=== PATIENT | female | born 1995 | race Caucasian/White ===

== ENCOUNTER 2016-10-01 15:52 | Emergency (ER) | payer MEDICAID ==
--- NOTE | 2016-10-01 16:33 | ER Document Report ---
ED Medical Screen (RME) - General Stated Complaint: BLEEDING/CRAMPING Notes: 21 yo female c/o bleeding and cramping x 2 days. pt has nexplanon in left arm. no urinary symptoms. GiP1. LMP 2013 TRAVEL OUTSIDE OF THE [place] IN LAST 30 DAYS: No - Related Data Allergies/Adverse Reactions: No Known Allergies Allergy (Verified 06/18/13 17:49) Past Medical History GI Medical History: Reports: Hx Gastroesophageal Reflux Disease Psychiatric Medical History: Reports: Hx Depression Past Surgical History: Reports: Hx Adenoidectomy, Hx Cardiac Surgery - PDA repaired 1994, Hx Oral Surgery - wisdom teeth, Hx Tonsillectomy - Immunizations Immunizations up to date: Yes Hx Diphtheria, Pertussis, Tetanus Vaccination: Yes - 07/2013 Physical Exam - Vital signs Vitals: Temp Pulse Resp BP Pulse Ox 98.0 F 120 H 18 137/69 H 99 10/01/16 16:06 10/01/16 16:06 10/01/16 16:06 10/01/16 16:06 10/01/16 16:06 Course - Vital Signs Vital signs: Temp Pulse Resp BP Pulse Ox 98.0 F 120 H 18 137/69 H 99 10/01/16 16:06 10/01/16 16:06 10/01/16 16:06 10/01/16 16:06 10/01/16 16:06
[2016-10-01 17:05] LABS: ABSOLUTE BASOPHILS # (AUTO) 0.1 10^3/uL (0.0-0.2); ABSOLUTE EOSINOPHILS # (AUTO) 0.2 10^3/uL (0.0-0.6); ABSOLUTE MONOCYTES (AUTO) 0.6 10^3/uL (0.1-1.4); ABSOLUTE NEUT (AUTO) 6.3 10^3/uL (1.7-8.2); BASOPHILS % (AUTO) 0.6 % (0-2); EOSINOPHILS % (AUTO) 2.1 % (0-6); HEMATOCRIT 39.8 % (36.0-47.0); HEMOGLOBIN 13.7 g/dL (12.0-15.5); HGB HCT DIFFERENCE 1.3; LYMPHOCYTES % (AUTO) 21.9 % (13-45); MEAN CORPUSCULAR HEMOGLOBIN 28.2 pg (27.0-33.4); MEAN CORPUSCULAR HGB CONC 34.3 g/dL (32.0-36.0); MEAN CORPUSCULAR VOLUME 82 fl (80-97); MONOCYTES % (AUTO) 6.7 % (3-13); RED BLOOD COUNT 4.84 10^6/uL (3.72-5.28); RED CELL DISTRIBUTION WIDTH 14.4 % (11.5-14.0); SEGMENTED NEUTROPHILS % (AUTO) 68.7 % (42-78); WHITE BLOOD COUNT 9.1 10^3/uL (4.0-10.5)
--- NOTE | 2016-10-01 18:06 | ER Document Report ---
ED GI/ - General Chief Complaint: Vaginal Bleeding Stated Complaint: BLEEDING/CRAMPING Mode of Arrival: Ambulatory Information source: Patient TRAVEL OUTSIDE OF THE [place] IN LAST 30 DAYS: No - HPI Patient complains to provider of: Pelvic pain, Vaginal bleeding Onset: Other - 2 DAYS Timing/Duration: Waxing and waning Quality of pain: Cramping Severity at maximum: Moderate Severity in ED: Moderate Context: Other - HAS CONTRACEPTIVE IMPLANT L. ARM. denies: Bad food, Lifting, Out of the country travel, , Recent trauma Location: Pelvis Vaginal bleeding (Compared to normal period): Heavier. denies: Passing clots, Passing tissue Menstrual period history: Abnormal - NONE SINCE CONTRACEPTIVE IMPLANT2014 Sexual history: Active - MONOGAMOUS Associated symptoms: None. denies: Chills, Fever, Nausea, Vomiting Exacerbated by: Denies Relieved by: Denies Similar symptoms previously: No Recently seen / treated by doctor: No - Related Data Allergies/Adverse Reactions: No Known Allergies Allergy (Verified 10/01/16 16:31) Past Medical History - General Information source: Patient - Social History Smoking Status: Never Smoker Cigarette use (# per day): No Chew tobacco use (# tins/day): No Frequency of alcohol use: None Drug Abuse: None Lives with: Spouse/Significant other Family History: Reviewed & Not Pertinent Patient has suicidal ideation: No Patient has homicidal ideation: No - Past Medical History Cardiac Medical History: Reports: None Pulmonary Medical History: Reports: None EENT Medical History: Reports: None Neurological Medical History: Reports: None Endocrine Medical History: Reports: None Renal/ Medical History: Reports: None. Denies: Hx Peritoneal Dialysis Malignancy Medical History: Reports: None GI Medical History: Reports: Hx Gastroesophageal Reflux Disease Musculoskeltal Medical History: Reports None Psychiatric Medical History: Reports: Hx Depression Past Surgical History: Reports: Hx Adenoidectomy, Hx Cardiac Surgery - PDA repaired 1994, Hx Oral Surgery - wisdom teeth, Hx Tonsillectomy - Immunizations Immunizations up to date: Yes Hx Diphtheria, Pertussis, Tetanus Vaccination: Yes - 07/2013 Review of Systems - Review of Systems Constitutional: No symptoms reported EENT: No symptoms reported Cardiovascular: No symptoms reported Respiratory: No symptoms reported Gastrointestinal: No symptoms reported Genitourinary: No symptoms reported Female Genitourinary: See HPI Musculoskeletal: No symptoms reported Skin: No symptoms reported Neurological/Psychological: No symptoms reported Physical Exam - Vital signs Vitals: Temp Pulse Resp BP Pulse Ox 98.0 F 120 H 18 137/69 H 99 10/01/16 16:06 10/01/16 16:06 10/01/16 16:06 10/01/16 16:06 10/01/16 16:06 Interpretation: Tachycardic - RESOLVED @ TIME OF M.D. EXAM. No: Hypotensive, Tachypneic, Febrile - General General appearance: Appears well, Alert In distress: None - HEENT Head: Normocephalic Eyes: Normal. No: Pale conjunctiva Conjunctiva: Normal Ears: Normal Nasal: Normal Mouth/Lips: Normal Mucous membranes: Normal - Respiratory Respiratory status: No respiratory distress - Cardiovascular Rhythm: Regular - Abdominal Inspection: Normal Distension: No distension Bowel sounds: Hypoactive Tenderness: Tender - LOW ABD, R=L - Back Back: Normal - Extremities General upper extremity: Normal inspection General lower extremity: Normal inspection - Neurological Neuro grossly intact: Yes Cognition: Normal Orientation: AAOx4 - Psychological Associated symptoms: Normal affect, Normal mood - Skin Skin Temperature: Warm Skin Moisture: Dry Skin Color: Normal Skin Turgor: Elastic Course - Vital Signs Vital signs: Temp Pulse Resp BP Pulse Ox 98.0 F 120 H 18 137/69 H 99 10/01/16 16:06 10/01/16 16:06 10/01/16 16:06 10/01/16 16:06 10/01/16 16:06 - Laboratory Result Diagrams: 10/01/16 16:51 Laboratory results interpreted by me: 10/01/16 16:51 RDW 14.4 H - Consults DR. Eufemia ADDISON Time consulted: 21:15 Consulted provider: follow-up in office Discharge - Discharge Clinical Impression: Pelvic pain, Mass of uterus determined by ultrasound Menorrhagia Qualifiers: Menorrahagia type: with irregular cycle Qualified Code(s): N92.1 - Excessive and frequent menstruation with irregular cycle Condition: Stable Disposition: HOME, SELF-CARE Instructions: Pelvic Pain ([facility]) Additional Instructions: REST, DRINK PLENTY OF FLUIDS. MEDS DIRECTED. FOLLOW UP WITH YOUR TAPE STRINGER, CALL OFFICE TOMORROW FOR APPT. RETURN TO E[facility]R. IF YOU GET WORSE, ANY TIME. Prescriptions: Doxycycline Monohydrate 100 mg PO BID #20 tablet Referrals: LILI ADDISON MD [ACTIVE STAFF] - Follow up tomorrow
[2016-10-01] MEDS ORDERED: DOXYCYCLINE HYCLATE 100 MG TABLET PO ONE (21:22)
[2016-10-01] MEDS ORDERED: ONDANSETRON 4 MG TAB.RAPDIS PO ONE (21:23)
[2016-10-01] MEDS ORDERED: HYDROCODONE/ACETAMINOPHEN 5-325 MG TABLET PO ONE (21:23)
[2016-10-01] MEDS ORDERED: ONDANSETRON ODT 4 MG TAB (6 TAB/DSPK) PO PRN (21:33)
[2016-10-01] MEDS ORDERED: HYDROCODONE/ACETAMINOPHEN 5-325 MG 6 TAB/DSPK PO PRN (21:33)
[2016-10-01 22:27] VITALS: BP 123/63
== END 2016-10-01 22:28 | disposition home or self-care (01) ==
LOC: ER 15:52
DX: N92.1 Excessive and frequent menstruation with irregular cycle (principal); R10.2 Pelvic and perineal pain; R19.00 Intra-abdominal and pelvic swelling, mass and lump, unspecified site; N93.9 Abnormal uterine and vaginal bleeding, unspecified
CPT/HCPCS: 99284; 36415; 84703; 85025; 76830; 93976; J3490; S0119

== ENCOUNTER → 2019-03-25 | Outpatient (CLI) | payer OTHER ==
--- NOTE | 2019-03-25 12:19 | RADIOLOGY REPORT (SQ) ---
EXAM DESCRIPTION: SCOLIOSIS SERIES COMPLETED DATE/TIME: 03/25/2019 12:07 pm REASON FOR STUDY: SCOLIOSIS, UNSPECIFIED M41.9 SCOLIOSIS, UNSPECIFIED COMPARISON: None. NUMBER OF VIEWS: One view. TECHNIQUE: Standing AP exam of the thoracolumbar spine with measurement of the CHIN angles. LIMITATIONS: None. FINDINGS: GENERALIZED BONY FINDINGS: No anomalies. No worrisome bone lesions. THORACIC SPINE: APEX: T7-T8 ANGULATION: Curvature convex to the right. DEGREES: 9 LUMBAR SPINE: Not imaged. CHANGE: Not applicable - no prior studies. OTHER: No other significant findings. IMPRESSION: SCOLIOSIS WITH MEASUREMENTS ABOVE. TECHNICAL DOCUMENTATION: JOB ID: [id number] [employer]- All Rights Reserved Reading location - IP/workstation name: [email or web address]
== END ==
LOC: OD 11:57
PROVIDERS: ATTEND Family Medicine
DX: M41.9 Scoliosis, unspecified (principal)
CPT/HCPCS: 72082